=== PATIENT | female | born 1995 | race Two or more races ===

== ENCOUNTER 2021-01-12 09:05 | Emergency (ER) | payer MEDICAID ==
--- NOTE | 2021-01-12 10:08 | EDM.PDOC ---
ED HPI GENERAL MEDICAL PROBLEM - General Chief Complaint: Lower Extremity Injury/Pain Stated Complaint: ANKLE INJURY Time Seen by Provider: 01/12/21 09:20 Source of Information: Reports: Patient History Limitations: Reports: No Limitations - History of Present Illness INITIAL COMMENTS - FREE TEXT/NARRATIVE: Patient presented to the ED because of a RT ankle injury. She slipped and twisted her Rt ankle while in the shower room. She rate her pain 7/10. Right Ankle Pain Score (Numeric/FACES): 7 - Related Data Allergies Allergy/AdvReac Type Severity Reaction Status Date / Time No Known Allergies Allergy Verified 01/12/21 09:08 Home Meds: Home Meds Ibuprofen 800 mg PO Q8H PRN #30 tablet 01/12/21 [Rx] Past Medical History Musculoskeletal History: Reports: Fracture Social & Family History - Family History Family Medical History: No Pertinent Family History - Tobacco Use Tobacco Use Status *Q: Current Every Day Tobacco User Years of Tobacco use: 5 Packs/Tins Daily: 1 - Caffeine Use Caffeine Use: Reports: Energy Drinks - Recreational Drug Use Recreational Drug Use: No Review of Systems - Review of Systems Review Of Systems: See Below Constitutional: Reports: No Symptoms Eyes: Reports: No Symptoms Ears: Reports: No Symptoms Nose: Reports: No Symptoms Mouth/Throat: Reports: No Symptoms Respiratory: Reports: No Symptoms Cardiovascular: Reports: No Symptoms GI/Abdominal: Reports: No Symptoms Genitourinary: Reports: No Symptoms Musculoskeletal: Reports: Other (RT ankle pain) Skin: Reports: No Symptoms ED EXAM, GENERAL - Physical Exam Exam: See Below Exam Limited By: No Limitations General Appearance: Alert, No Apparent Distress Ears: Normal External Exam, Normal Canal Nose: Normal Inspection, Normal Mucosa, No Blood Throat/Mouth: Normal Inspection, Normal Lips, Normal Teeth Head: Atraumatic, Normocephalic Neck: Normal Inspection, Supple, Non-Tender, Full Range of Motion Respiratory/Chest: No Respiratory Distress, Lungs Clear, Normal Breath Sounds Cardiovascular: Normal Peripheral Pulses, Regular Rate, Rhythm, No Edema, No Gallop GI/Abdominal: Normal Bowel Sounds, Soft, Non-Tender, No Organomegaly Back Exam: Other (tenderness and swelling lateral and medial aspect of rt ankle) Neurological: Alert, Oriented Course - Vital Signs Text/Narrative:: Xray Rt ankle -negative Last Recorded V/S: Last Vital Signs Temp 37.6 C 01/12/21 09:06 Pulse 120 H 01/12/21 09:06 Resp 20 01/12/21 09:06 BP 132/68 01/12/21 09:06 Pulse Ox 95 01/12/21 09:06 - Orders/Labs/Meds Orders: Active Orders 24 hr Category Date Time Status Ankle Min 3V Rt [CR] Stat Exams 01/12/21 09:11 Taken Departure - Departure Time of Disposition: 10:20 Disposition: Home, Self-Care 01 Condition: Good Clinical Impression: Ankle sprain - Discharge Information Prescriptions: Ibuprofen 800 mg PO Q8H PRN #30 tablet PRN Reason: Pain Instructions: Ankle Sprain, [id number] Referrals: PCP,None [Primary Care Provider] - Forms: ED Department Discharge Additional Instructions: Please read discharge instructions on akle sprain Apply ice,elevate Ibuprofen 800 mg with tylenol 1000 mg every 8 hours as needed for pain We will call you if there is any changes on the xray reading Sepsis Event Note (ED) - Evaluation Sepsis Screening Result: No Definite Risk - Focused Exam Vital Signs: Vital Signs Temp Pulse Resp BP Pulse Ox 01/12/21 09:06 37.6 C 120 H 20 132/68 95 - My Orders Last 24 Hours: My Active Orders 01/12/21 09:11 Ankle Min 3V Rt [CR] Stat - Assessment/Plan Last 24 Hours: My Active Orders 01/12/21 09:11 Ankle Min 3V Rt [CR] Stat
--- NOTE | 2021-01-12 10:27 | CR ---
INDICATION: Pain after a fall this morning. RIGHT ANKLE: Three views of the right ankle were obtained 01/12/21 - no comparisons. Evidence of previous ORIF is noted with two screws through the medial malleolus and appearing intact and a plate with five screws and an anchor to the tibia appearing intact. The ankle mortise appeared to be intact with joint space symmetric and intact talar dome. An acute fracture or dislocation was not identified. IMPRESSION: No acute fracture or dislocation post ORIF. There does appear to be soft tissue swelling about the ankle and calf. MTDD
== END 2021-01-12 10:35 | disposition home or self-care (01) ==
LOC: FB.ED 09:05
DX: S93.401A Sprain of unspecified ligament of right ankle, initial encounter (principal); Z72.0 Tobacco use; X50.1XXA Overexertion from prolonged static or awkward postures, initial encounter
CPT/HCPCS: 73610-RT; 99282; 99283

== ENCOUNTER 2021-09-25 18:26 | Emergency (ER) | payer MEDICAID ==
[2021-09-25] MEDS: Metoprolol Succinate 25 MG Tab.ER PO ONE (19:12)
[2021-09-25] MEDS: Aspirin 81 MG Tab.Chew PO SCH (20:21)
[2021-09-25] MEDS: Amoxicillin/Clavulanate K 875-125 MG Tab PO ONE (21:43)
[2021-09-25] MEDS: Lisinopril 10 MG Tab PO ONE (21:43)
== END 2021-09-25 22:05 | disposition home or self-care (01) ==
LOC: FB.ED 18:26
DX: J18.9 Pneumonia, unspecified organism (principal); I16.1 Hypertensive emergency; I11.9 Hypertensive heart disease without heart failure; F17.210 Nicotine dependence, cigarettes, uncomplicated; R06.02 Shortness of breath; E66.2 Morbid (severe) obesity with alveolar hypoventilation; Z79.899 Other long term (current) drug therapy; Z68.44 Body mass index [BMI] 60.0-69.9, adult
CPT/HCPCS: 36415; 71046; 80053; 83880; 84484; 85025; 93005; 93010; 99284; 99285-25; A9270-GY

== ENCOUNTER 2025-04-08 14:08 | Emergency (ER) | payer MEDICAID ==
[2025-04-08 16:07] LABS: MEAN PLATELET VOLUME 7.2 fL (7.1-12.4); PLATELET COUNT,PLT 270 x10(3)uL (151-488); RED BLOOD CELL COUNT 4.61 x10(6)uL (3.60-5.20); RED CELL DISTRIBUTION WIDTH 13.2 % (12.3-16.5); WHITE BLOOD CELL COUNT,WBC 17.9 x10-3/uL (3.0-10.3)
[2025-04-08 16:14] LABS: BASE EXCESS VENOUS,POC 2 mmol/L (-2 - 3+); PCO2 VENOUS,POC 42 mmHg (41-51); PH VENOUS,POC 7.41 pH Units (7.32-7.43)
[2025-04-08 16:15] LABS: BLOOD UREA NITROGEN,BUN 7 mg/dL (7-18); CARBON DIOXIDE,CO2 28 mmol/L (21-32); CHLORIDE,CL 100 mmol/L (100-110); CREATININE 0.7 mg/dL (0.55-1.02); ESTIMATED GFR 121 mL/min (>60); GLUCOSE RANDOM 146 mg/dL (80-116); POTASSIUM,K 4.2 mmol/L (3.5-5.3); SODIUM,NA 136 mmol/L (135-145)
[2025-04-08 16:19] LABS: A/G RATIO 0.7; ALANINE AMINOTRANSFERASE,ALT 26 U/L (12-36); ASPARTATE AMNIOTRANSFERASE,AST 18 IU/L (5-25); BILIRUBIN TOTAL 0.5 mg/dL (0.1-1.3); PROTEIN TOTAL,TP 7.3 g/dL (6.0-8.0)
[2025-04-08 16:43] LABS: GLUCOSE,URINE NORMAL (NORMAL); OCCULT BLOOD,URINE LARGE (NEGATIVE)
[2025-04-08 17:02] LABS: APPEARANCE,URINE SLIGHTLY CLOUDY (CLEAR); SQUAMOUS EPITHELIAL CELLS,UR FEW (NS,R,O)
[2025-04-08] MEDS: Iopamidol 755 Mg/ML 100 ML Bottle IV SCH (17:12)
[2025-04-08 17:24] LABS: LYMPHOCYTES PERCENT MAN 3 % (13-37); MONOCYTES PERCENT MAN 6 % (4-12); SEG NEUTROPHILS PERCENT MAN 91 % (46-82)
[2025-04-08 17:33] LABS: INFLUENZA A NAA NEGATIVE (NEGATIVE); INFLUENZA B NAA NEGATIVE (NEGATIVE); RESPIRATORY SYNCYTIAL VIR NAA NEGATIVE (NEGATIVE)
[2025-04-08 17:58] LABS: CORONAVIRUS COVID-19 NAA NEGATIVE (NEGATIVE)
== END 2025-04-08 19:17 | disposition home or self-care (01) ==
LOC: FB.ED 14:08
DX: J18.9 Pneumonia, unspecified organism (principal); R04.2 Hemoptysis; E83.42 Hypomagnesemia; E87.20 Acidosis, unspecified; R79.82 Elevated C-reactive protein (CRP); D72.829 Elevated white blood cell count, unspecified; I11.0 Hypertensive heart disease with heart failure; I50.9 Heart failure, unspecified; F17.210 Nicotine dependence, cigarettes, uncomplicated; Z86.16 Personal history of COVID-19; Z79.899 Other long term (current) drug therapy
CPT/HCPCS: 36415; 71275; 80053; 81001; 81025; 83605; 83735; 83880; 85025; 85379; 86140; 87040; 87486; 87581; 87633; 87637; 87798; 93005; 99285; A9270; Q9967